=== PATIENT | male | born 1990 | race Caucasian/White ===

== ENCOUNTER 2017-03-19 11:21 | Emergency (ER) | payer SELFPAY ==
[~2017-03-19] VITALS: Ht 175.3 cm; Wt 72.6 kg
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
[2017-03-19] MEDS ORDERED: diphenhydrAMINE HCL 50 MG/ML VIAL ONE (11:38)
[2017-03-19] MEDS ORDERED: CEFTRIAXONE 1GM BAG (ER ONLY) 50 ML IV ONE (11:38)
[2017-03-19] MEDS ORDERED: IV SET PRIMARY PUMP SET 1 EA INFUS.SET MC ONE (11:38)
[2017-03-19] MEDS ORDERED: methylPREDNISolone SOD SUCC 125 MG/2ML VIAL ONE (11:38)
--- NOTE | 2017-03-19 11:53 | NUR ---
MEDICATIONS GIVEN ORDERED.
[2017-03-19] MEDS ORDERED: CEFTRIAXONE 1GM BAG (ER ONLY) 1 GM/50 ML PIGGYBACK IV ONE (12:00)
[2017-03-19] MEDS ORDERED: methylPREDNISolone SOD SUCC 125 MG/2ML VIAL IV ONE (12:00)
[2017-03-19] MEDS ORDERED: diphenhydrAMINE HCL 50 MG/ML VIAL IV ONE (12:00)
[2017-03-19 12:30] VITALS: BP 120/66
--- NOTE | 2017-03-19 12:44 | NUR ---
Patient discharged to home in stable condition. Written and verbal after care instructions given. Patient verbalizes understanding of instruction.
== END 2017-03-19 12:47 | disposition home or self-care (01) ==
LOC: ER 11:23
DX: K12.2 Cellulitis and abscess of mouth (principal); F17.210 Nicotine dependence, cigarettes, uncomplicated
CPT/HCPCS: A4606; J0696; J1200; J2930; Z7610

== ENCOUNTER 2017-04-09 13:17 | Emergency (ER) | payer OTHER ==
[~2017-04-09] VITALS: Ht 172.7 cm; Wt 68.0 kg
[2017-04-09] MEDS ORDERED: IBUPROFEN 400 MG TABLET PO ONE (13:30)
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
[2017-04-09] MEDS ORDERED: IBUPROFEN 400 MG TABLET ONE (13:35)
--- NOTE | 2017-04-09 14:32 | NUR ---
Patient discharged in stable condition. OK TO BOOK. Written and verbal after care instructions given. Patient verbalizes understanding of instruction.
[2017-04-09 14:33] VITALS: BP 135/82
== END 2017-04-09 14:34 ==
LOC: ER 13:19
DX: S63.601A Unspecified sprain of right thumb, initial encounter (principal); S20.211A Contusion of right front wall of thorax, initial encounter; F17.210 Nicotine dependence, cigarettes, uncomplicated; F10.20 Alcohol dependence, uncomplicated; W22.8XXA Striking against or struck by other objects, initial encounter; Y92.149 Unspecified place in prison as the place of occurrence of the external cause; Y93.89 Activity, other specified; Y99.8 Other external cause status
CPT/HCPCS: 29125; 71020; 73140; 99284; A4606; Z7610

== ENCOUNTER 2020-02-25 20:36 | Emergency (ER) | payer SELFPAY ==
[~2020-02-25] VITALS: Ht 172.7 cm; Wt 72.6 kg
[2020-02-25 20:36] VITALS: BP 135/79
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
[2020-02-25] MEDS ORDERED: TDAP [DIPH/PERTUSSIS/TET] 0.5 ML VIAL IM ONE ×2 (21:12→21:30)
--- NOTE | 2020-02-25 21:21 | NUR ---
Patient discharged to home in stable condition. Written and verbal after care instructions given. Patient verbalizes understanding of instruction.
== END 2020-02-25 21:21 | disposition home or self-care (01) ==
LOC: ER 20:38
DX: S61.412A Laceration without foreign body of left hand, initial encounter (principal); W22.8XXA Striking against or struck by other objects, initial encounter; Y93.89 Activity, other specified; Y92.89 Other specified places as the place of occurrence of the external cause; Y99.8 Other external cause status
CPT/HCPCS: 90471; 90715; 99283; A6403

== ENCOUNTER 2020-06-30 23:09 | Emergency (ER) | payer SELFPAY ==
[~2020-06-30] VITALS: Ht 172.7 cm; Wt 68.0 kg
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
--- NOTE | 2020-07-01 00:12 | NUR ---
rubia back [facility] [place]
[2020-07-01 00:58] VITALS: BP 129/72
--- NOTE | 2020-07-01 00:58 | NUR ---
Patient discharged to home in stable condition. Written and verbal after care instructions given. Patient verbalizes understanding of instruction and RX. Pt ambulated with steady gait. vss.
== END 2020-07-01 00:58 | disposition home or self-care (01) ==
LOC: ER 23:15
DX: S02.2XXA Fracture of nasal bones, initial encounter for closed fracture (principal); M25.561 Pain in right knee; M25.562 Pain in left knee; M79.632 Pain in left forearm; M79.631 Pain in right forearm; M54.5 Low back pain; Y04.0XXA Assault by unarmed brawl or fight, initial encounter; Y93.89 Activity, other specified; Y92.89 Other specified places as the place of occurrence of the external cause; Y99.8 Other external cause status
CPT/HCPCS: 70450-TC; 70486-TC; 72100-TC; 73090-TC; 73120-TC; 73560-TC